=== PATIENT | female | born 1975 | race American Indian/Alaskan Native ===

== ENCOUNTER 2017-01-28 14:52 | Emergency (ER) | payer MEDICAID ==
[2017-01-28 15:15] VITALS: BP 93/67
--- NOTE | 2017-01-28 15:17 | Emergency Department Report ---
ED ENT HPI - General Chief complaint: Earache Stated complaint: BUMP ON FACE Time Seen by Provider: 01/28/17 15:09 Source: patient Mode of arrival: Ambulatory Limitations: No Limitations - History of Present Illness Initial comments: PT states she went to her doctor today for "allergy eye" PT states after she left her appointment, she felt a "bump" on her face. PT states the bump is tender. PT states her eye has been red and draining x 2 days. PT was given [place] eye drops. pt states no relief with RX medication MD complaint: other (bump in front of R ear ) -: Sudden (pt suddenly noticed bump when she rubbed her face. ) Location: R ear Severity: moderate Severity scale (0 -10): 6 Quality: aching Consistency: constant Improves with: none Worsens with: other (palpatation ) Context- Dental: history of dental caries, poor dental care Associated Symptoms: denies: fever, cough, gum swelling, toothache - Related Data Previous Rx's Medication Instructions Recorded Last Taken Type Amoxicillin 500 mg PO BID #20 capsule 01/28/17 Unknown Rx Erythromycin [Erythromycin Ophth 1 cm OD QID 7 Days 01/28/17 Unknown Rx Oint] Ibuprofen [Motrin] 600 mg PO Q8H PRN #20 tablet 01/28/17 Unknown Rx Allergies Allergy/AdvReac Type Severity Reaction Status Date / Time codeine AdvReac Rash Verified 01/28/17 15:18 ED Dental HPI - General Stated complaint: BUMP ON FACE Time Seen by Provider: 01/28/17 15:09 - Related Data Previous Rx's Medication Instructions Recorded Last Taken Type Amoxicillin 500 mg PO BID #20 capsule 01/28/17 Unknown Rx Erythromycin [Erythromycin Ophth 1 cm OD QID 7 Days 01/28/17 Unknown Rx Oint] Ibuprofen [Motrin] 600 mg PO Q8H PRN #20 tablet 01/28/17 Unknown Rx Allergies Allergy/AdvReac Type Severity Reaction Status Date / Time codeine AdvReac Rash Verified 01/28/17 15:18 ED Review of Systems ROS: Stated complaint: BUMP ON FACE Other details as noted in HPI Comment: All other systems reviewed and negative Constitutional: denies: chills, fever Eyes: eye discharge. denies: vision change ENT: denies: ear pain, throat pain, dental pain, congestion Gastrointestinal: denies: abdominal pain Genitourinary: denies: abnormal menses ED Past Medical Hx - Past Medical History Previous Medical History?: Yes Hx Asthma: Yes - Surgical History Past Surgical History?: Yes Additional Surgical History: , tubal - Medications Home Medications: Home Medications Medication Instructions Recorded Confirmed Last Taken Type Amoxicillin 500 mg PO BID #20 capsule 01/28/17 Unknown Rx Erythromycin [Erythromycin Ophth 1 cm OD QID 7 Days 01/28/17 Unknown Rx Oint] Ibuprofen [Motrin] 600 mg PO Q8H PRN #20 tablet 01/28/17 Unknown Rx ED Physical Exam - General Limitations: No Limitations General appearance: alert, in no apparent distress - Head Head exam: Present: atraumatic, normocephalic, normal inspection - Eye Eye exam: Present: PERRL, EOMI, conjunctival injection (R eye, + drainage). Absent: nystagmus, periorbital swelling, periorbital tenderness Pupils: Present: normal accommodation - Expanded Eye Exam Expanded Pupils: Regular, Round: Bilateral Sclera/Conjunctival: Injection: Right, Exudate: Right - ENT ENT exam: Present: mucous membranes moist, TM's normal bilaterally. Absent: normal external ear exam - Expanded ENT Exam Expanded Ear exam: Present: other (preauricular lymphadenopathy ) Mouth exam: Absent: drooling, trismus Teeth exam: Present: dental caries, dental tenderness # (1-3) 1 - Dental Tenderness (dental decay) Throat exam: Positive: normal inspection. Negative: tonsillar erythema, tonsillomegaly, tonsillar exudate - Neck Neck exam: Present: normal inspection, full ROM. Absent: tenderness, lymphadenopathy - Respiratory Respiratory exam: Present: normal lung sounds bilaterally. Absent: respiratory distress - Cardiovascular Cardiovascular Exam: Present: regular rate, normal rhythm, normal heart sounds - Extremities Exam Extremities exam: Present: normal inspection, full ROM - Back Exam Back exam: Present: normal inspection, full ROM - Neurological Exam Neurological exam: Present: alert, oriented X3, normal gait - Psychiatric Psychiatric exam: Present: normal affect, normal mood - Skin Skin exam: Present: warm, dry, intact, normal color. Absent: rash ED Course Vital Signs 01/28/17 15:13 Temperature 98.2 F Pulse Rate 52 L Respiratory 16 Rate Blood Pressure 93/67 O2 Sat by Pulse 100 Oximetry - Reevaluation(s) Reevaluation #1: 01/28/17 15:26 PT aware of dx and plan of care. PT aware she will need to follow up with PCP and dentist. PT has no questions at this time. ED Medical Decision Making - Differential Diagnosis om, oe, dental infection, conjunctivitis Critical Care Time: No Critical care attestation.: If time is entered above; I have spent that time in minutes in the direct care of this critically ill patient, excluding procedure time. ED Disposition Clinical Impression: Preauricular adenopathy, Dental decay Conjunctivitis Qualifiers: Conjunctivitis type: acute Acute conjunctivitis type: unspecified Laterality: right Qualified Code(s): H10.31 - Unspecified acute conjunctivitis, right eye Disposition: TO HOME OR SELFCARE Is pt being admited?: No Does the pt Need Aspirin: No Condition: Stable Instructions: Dental Caries (ED), Conjunctivitis (ED), Lymphadenopathy (ED) Prescriptions: Amoxicillin 500 mg PO BID #20 capsule Erythromycin [Erythromycin Ophth Oint] 1 cm OD QID 7 Days Ibuprofen [Motrin] 600 mg PO Q8H PRN #20 tablet PRN Reason: Pain Referrals: NATALY DEL VALLE MD [Referring] - 3-5 Days [facility] [Outside] - 3-5 Days [facility] [Outside] - 3-5 Days Forms: Work/School Release Form(ED) Time of Disposition: 15:29
== END 2017-01-28 15:39 | disposition home or self-care (01) ==
LOC: ED 14:52
DX: R59.9 Enlarged lymph nodes, unspecified (principal); K02.9 Dental caries, unspecified; H10.31 Unspecified acute conjunctivitis, right eye; J45.909 Unspecified asthma, uncomplicated
CPT/HCPCS: 99281

== ENCOUNTER 2019-10-19 19:24 | Emergency (ER) | payer MEDICAID, OTHER ==
--- NOTE | 2019-10-19 20:43 | Event Note ---
ED Screening Note Date of service: 10/19/19 Time: 20:42 ED Screening Note: 44 y o f presents with finger werlling and pain today s/p fall today swollen middle finger, red This initial assessment/diagnostic orders/clinical plan/treatment(s) is/are subject to change based on patients health status, clinical progression and re- assessment by fellow clinical providers in the ED. Further treatment and workup at subsequent clinical providers discretion. Patient/guardian urged not to elope from the ED as their condition may be serious if not clinically assessed and managed. Initial orders include: xr left hand
--- NOTE | 2019-10-19 21:14 | XRay Report ---
Left hand 3 views INDICATION: Left hand pain and swelling IMPRESSION: There is moderate soft tissue swelling along the distal aspect of the long finger. No und erlying foreign body. No fracture or subluxation. Signer Name: Rajan Michael MD Signed: 10/19/2019 9:10 PM Workstation Name: [id number]
[2019-10-19] MEDS ORDERED: IBUPROFEN 600 MG TAB PO ONE ×2 (23:25→23:27)
[2019-10-20] MEDS ORDERED: traMADol 50 MG TAB PO ONE (01:22)
--- NOTE | 2019-10-20 01:27 | Emergency Department Report ---
ED Upper Extremity Inj HPI - General Chief Complaint: Extremity Injury, Upper Stated Complaint: LT MIDDLE INDEX FINGER HIGH BP Time Seen by Provider: 10/20/19 01:22 Source: patient Mode of arrival: Ambulatory Limitations: No Limitations - History of Present Illness Initial Comments: Mrs. Nino is a 44-year-old female with history of asthma who presents with left middle finger injury after a fall this afternoon. She has swelling at the knuckle decrease range of motion. She feels as if it is broken. MD Complaint: Injury to:: left, finger -: Sudden, This afternoon Other Extremity Injury: Fingers: Left (Middle finger) Other Injuries: none Context: fall Associated Symptoms: denies other symptoms - Related Data Previous Rx's Medication Instructions Recorded Last Taken Type Amoxicillin 500 mg PO BID #20 capsule 01/28/17 Unknown Rx Erythromycin [Erythromycin Ophth 1 cm OD QID 7 Days tube 01/28/17 Unknown Rx Oint] Ibuprofen [Motrin] 600 mg PO Q8H PRN #20 tablet 01/28/17 Unknown Rx Allergies Allergy/AdvReac Type Severity Reaction Status Date / Time codeine AdvReac Rash Verified 01/28/17 15:18 ED Review of Systems ROS: Stated complaint: LT MIDDLE INDEX FINGER HIGH BP Other details as noted in HPI Constitutional: denies: chills, fever, malaise Neurological: denies: numbness, paresthesias ED Past Medical Hx - Past Medical History Previous Medical History?: Yes Hx Asthma: Yes - Surgical History Past Surgical History?: Yes Additional Surgical History: , tubal - Social History Smoking Status: Current Every Day Smoker Substance Use Type: Alcohol - Medications Home Medications: Home Medications Medication Instructions Recorded Confirmed Last Taken Type Amoxicillin 500 mg PO BID #20 capsule 01/28/17 Unknown Rx Erythromycin [Erythromycin Ophth 1 cm OD QID 7 Days tube 01/28/17 Unknown Rx Oint] Ibuprofen [Motrin] 600 mg PO Q8H PRN #20 tablet 01/28/17 Unknown Rx ED Physical Exam - General Limitations: No Limitations General appearance: alert, in no apparent distress - Head Head exam: Present: atraumatic, normocephalic - Neck Neck exam: Present: normal inspection - Respiratory Respiratory exam: Absent: respiratory distress - Expanded Upper Extremity Exam Left Forearm Wrist exam: Present: normal inspection, full ROM. Absent: tenderness, swelling Hand Wrist exam: Present: full ROM (Decreased range of motion at PIP), tenderness, swelling ( swelling at PIP). Absent: abrasion, laceration, ecchymosis, deformity, crepidus, dislocation ED Course Vital Signs 10/19/19 20:40 Temperature 98.3 F Pulse Rate 83 Respiratory 16 Rate Blood Pressure 136/81 O2 Sat by Pulse 98 Oximetry ED Medical Decision Making - Radiology Data Radiology results: report reviewed Left finger radiographs: Moderate soft tissue swelling along the distal aspect of the long finger, no foreign body no fracture or subluxation - Medical Decision Making Left finger sprain: Finger splint was applied to the left middle finger extremity under my supervision. After application the extremity was neurovascularly intact with acceptable alignment. Prescribed ibuprofen. Referred to orthopedic surgeon as needed Critical care attestation.: If time is entered above; I have spent that time in minutes in the direct care of this critically ill patient, excluding procedure time. ED Disposition Clinical Impression: Sprain of left middle finger Disposition: DC-01 TO HOME OR SELFCARE Is pt being admited?: No Does the pt Need Aspirin: No Condition: Stable Instructions: Finger Sprain (ED) Referrals: AUSTNI GUTIÉRREZ MD [Staff Physician] - 3-5 Days Forms: Work/School Release Form(ED)
[2019-10-20 02:02] VITALS: BP 127/72
== END 2019-10-20 02:02 | disposition home or self-care (01) ==
LOC: ED 19:24
DX: S63.613A Unspecified sprain of left middle finger, initial encounter (principal); J45.909 Unspecified asthma, uncomplicated; F17.200 Nicotine dependence, unspecified, uncomplicated; Z98.890 Other specified postprocedural states; Z79.1 Long term (current) use of non-steroidal anti-inflammatories (NSAID); Z79.2 Long term (current) use of antibiotics; Z79.899 Other long term (current) drug therapy; Z88.6 Allergy status to analgesic agent; X58.XXXA Exposure to other specified factors, initial encounter; Y93.89 Activity, other specified; Y92.89 Other specified places as the place of occurrence of the external cause; Y99.8 Other external cause status